=== PATIENT | male | born 1965 | race Caucasian/White ===

== ENCOUNTER 2022-05-31 14:51 | Outpatient (REF) | payer OTHER, SELFPAY ==
--- NOTE | ~2022-05-31 | XR_ITS ---
EXAMINATION: XR FOOT, RIGHT XR FOOT, LEFT CLINICAL INFORMATION: [place]unions COMPARISON: Radiographs bilateral feet 10/12/2015 TECHNIQUE: Each foot is imaged in 3 views. There are total of 6 views. FINDINGS: Right: There is a prominent hallux valgus first MTP of approximately 54 degrees. Mild soft tissue prominence overlying the medial first metatarsal head. There are no erosive changes or destructive process. No fracture. There are hammertoe deformities second through fifth toes. The second MTP joint is not seen in profile, likely projectional. There are degenerative changes interphalangeal joints. No definite erosive change. The bony mineralization is normal. There are no erosive changes. There is moderate posterior and smaller plantar calcaneal spur. The retrocalcaneal recess is preserved. Subtalar joint unremarkable. Long axis talas projected lateral to first metatarsal on AP view and about first metatarsal on lateral view suggesting hindfoot varus. Left: There is prominent hallux valgus first MTP of approximately 46 degrees. Mild soft tissue prominence overlying the medial first metatarsal head. No erosive change or. No fracture. There are hammertoe deformities second through fifth digits with degenerative changes interphalangeal joint. No clearly visible erosive change. There is moderate posterior and borderline plantar calcaneal spur. The retrocalcaneal recess is preserved. The subtalar joint is unremarkable. Long axis talas projected lateral to first metatarsal on AP view and about first metatarsal on lateral view suggesting hindfoot varus. XR/XR foot RT min 3V IMPRESSION: -Prominent bilateral hallux valgus, greater on right. 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 -Bilateral common femoral with degenerative changes interphalangeal joint. -Bilateral posterior and borderline plantar calcaneal spurs.
--- NOTE | ~2022-05-31 | XR_ITS ---
EXAMINATION: XR FOOT, RIGHT XR FOOT, LEFT CLINICAL INFORMATION: Bunions COMPARISON: Radiographs bilateral feet 10/12/2015 TECHNIQUE: Each foot is imaged in 3 views. There are total of 6 views. FINDINGS: Right: There is a prominent hallux valgus first MTP of approximately 54 degrees. Mild soft tissue prominence overlying the medial first metatarsal head. There are no erosive changes or destructive process. No fracture. There are hammertoe deformities second through fifth toes. The second MTP joint is not seen in profile, likely projectional. There are degenerative changes interphalangeal joints. No definite erosive change. The bony mineralization is normal. There are no erosive changes. There is moderate posterior and smaller plantar calcaneal spur. The retrocalcaneal recess is preserved. Subtalar joint unremarkable. Long axis talas projected lateral to first metatarsal on AP view and about first metatarsal on lateral view suggesting hindfoot varus. Left: There is prominent hallux valgus first MTP of approximately 46 degrees. Mild soft tissue prominence overlying the medial first metatarsal head. No erosive change or. No fracture. There are hammertoe deformities second through fifth digits with degenerative changes interphalangeal joint. No clearly visible erosive change. There is moderate posterior and borderline plantar calcaneal spur. The retrocalcaneal recess is preserved. The subtalar joint is unremarkable. Long axis talas projected lateral to first metatarsal on AP view and about first metatarsal on lateral view suggesting hindfoot varus. XR/XR foot LT min 3V IMPRESSION: -Prominent bilateral hallux valgus, greater on right. 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 -Bilateral common femoral with degenerative changes interphalangeal joint. -Bilateral posterior and borderline plantar calcaneal spurs.
== END 2022-05-31 14:52 | disposition home or self-care (01) ==
LOC: HO.XRAY 14:51
PROVIDERS: PCP Internal Medicine; Visit Provider Internal Medicine
DX: M21.612 Bunion of left foot (principal); M21.611 Bunion of right foot
CPT/HCPCS: 73630

== ENCOUNTER 2022-06-01 06:18 | Outpatient (REF) | payer OTHER, SELFPAY ==
[2022-06-01 06:38] LABS: MANUAL DIFF FLAG NO
[2022-06-01 07:40] LABS: Basophils Absolute Auto 0.1 X10*3/uL (0.0-0.2); Eosinophils Absolute Auto 0.3 X10*3/uL (0.0-0.4); Eosinophils Percent Auto 5.3 % (0-4); Hematocrit 43.7 % (42.0-52.0); Hemoglobin 15.1 g/dl (14.0-18.0); Imm Gran Abs Auto 0.02 X10*3/uL (0.00-0.03); Imm Gran Pct Auto 0.3 % (0.0-0.4); Lymphocytes Absolute Auto 2.4 X10*3/uL (1.2-4.9); Lymphocytes Percent Auto 40.1 % (20-40); Mean Corpuscular HGB Conc 34.6 g/dl (31.0-36.0); Mean Corpuscular Hemoglobin 30.4 pg (27.0-33.0); Mean Corpuscular Volume 88.1 fL (80.0-98.0); Mean Platelet Volume 9.8 fL (9.4-12.4); Monocytes Absolute Auto 0.6 X10*3/uL (0.1-1.2); Monocytes Percent Auto 10.2 % (2-11); Neutrophils Absolute Auto 2.6 x10*3/uL (2.0-8.3); Neutrophils Percent Auto 43.1 % (45-73); Platelet Count 234 X10*3/uL (160-400); Red Blood Count 4.96 X10*6/uL (4.60-5.80); Red Cell Distribution Width 12.6 % (11.0-16.0); White Blood Count 6.1 X10*3/uL (4.8-10.8)
[2022-06-01 08:11] LABS: Alanine Aminotransferase 25 U/L (0-40); Albumin Level 4.4 g/dL (3.5-5.0); Alkaline Phosphatase 74 U/L (39-117); Anion Gap 12 (12-20); Aspartate Amino Transferase 24 U/L (5-37); Bilirubin Total 0.4 mg/dL (0.0-1.0); Blood Urea Nitrogen 27 mg/dL (9-16); C Reactive Protein 0.28 mg/dL (< or = 0.50); Calcium 9.4 mg/dL (8.4-10.2); Carbon Dioxide 24 mmol/L (22-29); Chloride 108 mmol/L (96-108); Cholesterol 254 mg/dL; Estimated Glomerular Filt Rate > 60; Glucose Fasting 93 mg/dL (60-99); HDL Cholesterol 52 mg/dL; LDL Cholesterol Calculated 189 mg/dl; Potassium 4.1 mmol/L (3.3-5.1); Sodium 140 mmol/L (135-145); Total Protein 7.3 g/dL (6.5-8.0); Triglycerides 66 mg/dL; Uric Acid 6.7 mg/dL (3.4-7.0)
[2022-06-01 08:34] LABS: Prostate Specific Antigen 0.71 ng/mL (<0.05-4.0)
== END 2022-06-01 06:19 | disposition home or self-care (01) ==
LOC: HO.LAB 06:18
PROVIDERS: PCP Internal Medicine; Visit Provider Internal Medicine
DX: Z00.00 Encounter for general adult medical examination without abnormal findings (principal); Z12.5 Encounter for screening for malignant neoplasm of prostate
CPT/HCPCS: 36415; 80053; 80061; 84153; 84550; 85025; 86140

== ENCOUNTER 2022-10-13 07:21 | Outpatient (REF) | payer OTHER, SELFPAY ==
[2022-10-13 08:21] LABS: Cholesterol 208 mg/dL; HDL Cholesterol 51 mg/dL; LDL Cholesterol Calculated 137 mg/dl; Triglycerides 103 mg/dL
== END 2022-10-13 07:22 | disposition home or self-care (01) ==
LOC: HO.LAB 07:21
PROVIDERS: PCP Internal Medicine; Visit Provider Internal Medicine
DX: E78.00 Pure hypercholesterolemia, unspecified (principal)
CPT/HCPCS: 36415; 80061

== ENCOUNTER 2023-06-18 06:09 | Outpatient (REF) | payer OTHER, SELFPAY ==
[2023-06-18 11:25] LABS: MANUAL DIFF FLAG NO
[2023-06-18 11:56] LABS: Basophils Percent Auto 0.7 % (0-2); Eosinophils Absolute Auto 0.3 X10*3/uL (0.0-0.4); Eosinophils Percent Auto 5.8 % (0-4); Hematocrit 43.1 % (42.0-52.0); Hemoglobin 14.5 g/dl (14.0-18.0); Imm Gran Abs Auto 0.02 X10*3/uL (0.00-0.03); Imm Gran Pct Auto 0.4 % (0.0-0.4); Lymphocytes Percent Auto 36.1 % (20-40); Mean Corpuscular HGB Conc 33.6 g/dl (31.0-36.0); Mean Corpuscular Hemoglobin 30.1 pg (27.0-33.0); Mean Corpuscular Volume 89.4 fL (80.0-98.0); Mean Platelet Volume 10.1 fL (9.4-12.4); Monocytes Absolute Auto 0.5 X10*3/uL (0.1-1.2); Monocytes Percent Auto 9.6 % (2-11); Neutrophils Absolute Auto 2.7 x10*3/uL (2.0-8.3); Neutrophils Percent Auto 47.4 % (45-73); Platelet Count 220 X10*3/uL (160-400); Red Blood Count 4.82 X10*6/uL (4.60-5.80); Red Cell Distribution Width 12.5 % (11.0-16.0); White Blood Count 5.7 X10*3/uL (4.8-10.8)
[2023-06-18 12:25] LABS: Prostate Specific Antigen 0.89 ng/mL (<0.05-4.0)
[2023-06-18 12:36] LABS: Sodium 138 mmol/L (135-145)
[2023-06-18 12:37] LABS: Alanine Aminotransferase 24 U/L (0-40); Albumin Level 4.1 g/dL (3.5-5.0); Alkaline Phosphatase 68 U/L (39-117); Anion Gap 10 (12-20); Aspartate Amino Transferase 27 U/L (5-37); Bilirubin Total 0.5 mg/dL (0.0-1.0); Blood Urea Nitrogen 22 mg/dL (9-16); Calcium 9.4 mg/dL (8.4-10.2); Carbon Dioxide 26 mmol/L (22-29); Chloride 106 mmol/L (96-108); Cholesterol 217 mg/dL; Estimated Glomerular Filt Rate > 60; Glucose Fasting 95 mg/dL (60-99); HDL Cholesterol 48 mg/dL; LDL Cholesterol Calculated 137 mg/dl; Potassium 3.8 mmol/L (3.3-5.1); Total Protein 7.1 g/dL (6.5-8.0); Triglycerides 162 mg/dL
== END 2023-06-18 06:10 | disposition home or self-care (01) ==
LOC: HO.HMGCLDS 06:09
PROVIDERS: PCP Internal Medicine; Visit Provider Internal Medicine
DX: E78.00 Pure hypercholesterolemia, unspecified (principal); R35.1 Nocturia; M19.042 Primary osteoarthritis, left hand; M19.041 Primary osteoarthritis, right hand; Z12.5 Encounter for screening for malignant neoplasm of prostate
CPT/HCPCS: 36415; 80053; 80061; 84153; 85025

== ENCOUNTER 2025-08-19 15:32 | Outpatient (AMB) | payer OTHER, SELFPAY ==
--- NOTE | 2025-08-19 15:27 | MHC.PC.OV ---
Vital Signs 08/19/25 15:39 Height 5 ft 11 in Weight 215 lb BMI 30.0 BP 164/80 H Blood Pressure Location Rt brachial Position Sitting Respiration 17 Pulse 77 Pulse Source Pulse Oximeter Temp 97.4 F Temp Source Temporal Artery Scan Pulse Oximetry (%) 96 Oxygen Delivery Method Room Air Intake Visit Reasons: Phyiscal - Croke pt. - see comments Test Deskman Required: No Accompanied by: Self / Same As Patient Allergies No Known Allergies Allergy (Verified 08/19/25 15:27) Tobacco use date assessed: 08/19/25 Dental Screening Dental Screen Date: 08/19/25 Did you have a dental visit in the last 12 months?: Yes Did you have a dental problem in the last 6 months where you did not have access to dental care?: No Was dental information given to patient?: Patient has dentist HPI HPI Comments History of Present Illness Details The patient is a 59-year-old male presenting with concerns of elevated blood pressure and leg swelling. He noted that his blood pressure was recorded at 164/80, which is considered high. He denies any prior knowledge of hypertension, as he has not been routinely taking medications. The patient expresses concern that the blood pressure reading may be influenced by situational stress as it improved slightly during the office visit to 140/80. He has not experienced any notable symptoms such as shortness of breath or chest discomfort associated with the elevated blood pressure. 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 He describes the swelling occurring after a day of work, after wearing socks and work boots. The swelling subsides somewhat when he elevates his legs at home. The patient also mentions a history of elevated cholesterol in previous lab work, although he is not currently on medication for this condition. Additionally, snoring has been reported by his , although he personally is not troubled by sleep disturbances or sensations of choking during the night. He denies symptoms of orthopnea or daytime somnolence. Medical History: - Previous history of elevated cholesterol Surgical History: - No history of surgical procedures. Medications: - None currently prescribed. Family History: - No family history of cancer, diabetes, or hypertension. 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 - Substance Use: Former smoker for 10+ years, quit 23-30 years ago. Occasionally consumes alcohol. Denies use of marijuana, cocaine, or heroin. - Housing: Stable housing. - Activity: Experiences leg swelling after prolonged standing at work. [facility] Medical History (Updated 08/19/25 @ 15:57 by Saim Doss MD) Swelling of lower extremity Hyperlipidemia Hypertension Social History Housing: House Patient Tobacco Use Status: Former Tobacco user Years Smoked: 10 years-quit 20 years ago e-Cigarette/Vaping Use: Never Used service: Yes Current occupational status: employed Current occupation: [employer] incorporated Questionnaire PHQ-9 Over the last 2 weeks, how often have you been bothered by any of the following problems? 1. Little interest or pleasure in doing things: not at all 2. Feeling down, depressed, or hopeless: not at all 3. Trouble falling or staying asleep, or sleeping too much: not at all 4. Feeling tired or having little energy: not at all 5. Poor appetite or overeating: not at all 6. Feeling bad about yourself - or that you are a failure or have let yourself or your family down: not at all 7. Trouble concentrating on things, such as reading the newspaper or watching television: not at all 8. Moving or speaking so slowly that other people could have noticed. Or the opposite - being so fidgety or restless that you have been moving around a lot more than usual: not at all 9. Thoughts that you would be better off or of hurting yourself in some way: not at all Total score: 0 Depression Screening Interpretation: Negative Depression Screening Done: Yes 15181 - PHQ-9 Billing: Yes Source: Developed by Drs. Virgilio Stanley, Meron Coe, Guanako Avila and colleagues, with an educational lory from [employer]. Thrive Questionnaire Date Thrive assessed: 08/19/25 I am a: Patient What is your living situation today?: I have a steady place to live Within the past 12 months, did the food you bought not last and you didn't have the money to get more?: Never true Within the past 12 months, did you worry whether your food would run out before you got money to buy more?: Never true Do you have trouble paying for medicines?: No Do you have trouble getting transportation to medical appointments?: No Do you have trouble paying your heating and electricity bill?: No Do you have trouble taking care of your child, family member or friend?: No Do you have trouble with day-to-day activities such as bathing, preparing meals, shopping, managing finances, etc.?: No Are you currently unemployed and looking for a job?: No Are you interested in more education?: No THRIVE Score: 0 AUDIT C Alcohol Use Questionnaire (AUDIT-C) 1. How often do you have a drink containing alcohol?: Monthly or less 2. How many drinks containing alcohol do you have on a typical day when you are drinking?: 1 or 2 Total Score: 1 Score Reviewed/Action Taken: Yes HUMPHREY-7 AMB Questionnaire HUMPHREY-7 Date HUMPHREY - 7 assessed: 08/19/25 Feeling nervous, anxious, or on edge: 0 = Not at all Not being able to stop or control worryin = Not at all Worrying too much about different things: 0 = Not at all Trouble relaxin = Not at all Being so restless that it is hard to sit still: 0 = Not at all Becoming easily annoyed or irritable: 0 = Not at all Feeling afraid as if something awful might happen: 0 = Not at all Total HUMPHREY-7 score (0-4 normal; 5-9 mild; 10-14 moderate; 15-21 severe): 0 Source: Developed by Drs. Virgilio Stanley, Meron Coe, Guanako Avila and colleagues, with an educational lory from [employer]. HUMPHREY-7 Assessment Billing HUMPHREY-7 Assessment Tool: HUMPHREY-7 Assessment 91451 Review of Systems Const Details: - Cardiovascular: Reports leg swelling; Denies shortness of breath. - Respiratory: Denies shortness of breath, but reports snoring. - Sleep: Denies difficulty sleeping or waking up gasping. - Psychiatric: Denies feelings of depression; occasionally feels tired. All systems reviewed & are unremarkable except as reviewed in HPI and above Physical exam (Primary Care) Vital Signs: Last Vital Signs Temp 97.4 F 08/19/25 15:39 Pulse 77 08/19/25 15:39 Resp 17 08/19/25 15:39 BP 164/80 H 08/19/25 15:39 Pulse Ox 96 08/19/25 15:39 Oxygen Delivery Method Room Air 08/19/25 15:39 BMI result Body Mass Index 30.0 Tobacco/Smoking Status: Tobacco use Status Tobacco use date assessed 08/19/25 08/19/25 15:28 Patient Tobacco Use Status Former Tobacco user 08/19/25 15:42 e-Cigarette/Vaping Use Never Used 08/19/25 15:42 Depression Screening Interpretation: Negative Const Other: General: Alert and oriented, Well nourished, No acute distress. Eye: Pupils are equal, round and reactive to light, Intact accommodation, Extraocular movements are intact, Normal conjunctiva, Vision unchanged. HENT: Normocephalic, Atraumatic, Tympanic membranes are clear, Normal hearing, Oral mucosa is moist, No pharyngeal erythema, Ear canals patent. Respiratory: Lungs CTA bilaterally, No wheeze, Respirations are non-labored. Cardiovascular: Regular rate, Regular rhythm, S1 auscultated, S2 auscultated, No murmur, Good pulses equal in all extremities, Normal peripheral perfusion, Edema noted in legs. Gastrointestinal: Soft, Non-tender, Non-distended, Normal bowel sounds, No organomegaly. Musculoskeletal: Normal range of motion, Normal strength, No tenderness, No swelling, No deformity, Normal gait. Integumentary: Warm, Dry, [place], Intact. Neurologic: Alert, Oriented, Normal sensory, Normal motor function, No focal defects, Cranial Nerves II-XII are grossly intact, Normal deep tendon reflexes. Psychiatric: Cooperative, Appropriate mood & affect, Normal judgment. Mood is good, no depression noted. Coding Level of Care Code New Pt Level 3 (46804) New Pt Prev Care 40-64y(12409) Diagnoses Hypertension, unspecified type I10 Hypertension type: unspecified Hyperlipidemia, unspecified hyperlipidemia type E78.5 Hyperlipidemia type: unspecified Swelling of lower extremity M79.89 Additional Codes PHQ-9 - 72642 - PHQ-9 Billing: Yes ([id number]) HUMPHREY-7 Assessment Billing - HUMPHREY-7 Assessment Tool: HUMPHREY-7 Assessment 08555 ([id number]) Assessment & Plan Assessment & Plan (1) Hypertension: Comment: - Encourage patient to monitor blood pressure at home with a cuff in the morning and maintain a log for the next six weeks. - Recommend lifestyle modifications: reduce sodium intake, increase physical activity, and consider dietary changes to aid in potential weight loss. - Discuss follow-up in six weeks to reassess blood pressure and potentially begin pharmacologic treatment if readings remain elevated. Code(s): I10 - Essential (primary) hypertension Category: Medical Qualifiers: Hypertension type: unspecified Qualified Code(s): I10 - Essential (primary) hypertension (2) Hyperlipidemia: Comment: - Order lipid panel to assess current cholesterol levels and determine the need for treatment. - Discuss diet modifications to assist in lowering cholesterol, emphasizing low-fat and heart-healthy options. - Discuss the potential need for statin therapy if cholesterol remains high upon reevaluation in six weeks. Code(s): E78.5 - Hyperlipidemia, unspecified Category: Medical Qualifiers: Hyperlipidemia type: unspecified Qualified Code(s): E78.5 - Hyperlipidemia, unspecified (3) Swelling of lower extremity: Comment: - Recommend use of compression stockings during work hours to alleviate leg swelling. - Advise routine elevation of legs when possible to reduce edema. - Ordered lab tests to rule out secondary causes of edema. Code(s): M79.89 - Other specified soft tissue disorders Category: Medical Plan: Health Maintenance: - Encouraged colon cancer screening due to the patient's age, cologuard ordered Patient was informed and verbally consented to the use of an ambient scribe for clinic note documentation during this visit. Plan I discussed with the patient that his recorded high blood pressure might indicate essential hypertension, which requires monitoring and lifestyle intervention to prevent complications. The possibility of starting treatment will depend on home monitoring results over the next six weeks. I emphasized the importance of dietary modifications and potential cholesterol-lowering medication based on future test results. I reviewed potential causes of his leg swelling and suggested compression stockings along with symptomatic management. We considered but deferred immediate intervention for snoring unless further symptoms suggestive of sleep apnea emerge. I discussed the importance of colon cancer screening and respected the patient's preference for stool-based testing after providing information on procedures and risks. We agreed on a six-week follow-up to assess all current management strategies and interventions. Orders: Orders Complete Blood Count Auto Diff Today I10 - Essential (primary) hypertension, Z76.89 - Persons encountering health services in other specified circumstances Comprehensive Met. Panel Today I10 - Essential (primary) hypertension, Z76.89 - Persons encountering health services in other specified circumstances Hepatitis A,B,C Profile Today I10 - Essential (primary) hypertension, Z76.89 - Persons encountering health services in other specified circumstances Syphilis Screen Today I10 - Essential (primary) hypertension, Z76.89 - Persons encountering health services in other specified circumstances Hemoglobin A1c Today I10 - Essential (primary) hypertension, Z76.89 - Persons encountering health services in other specified circumstances HIV Ab/Ag Today I10 - Essential (primary) hypertension, Z76.89 - Persons encountering health services in other specified circumstances Lipid Panel Today I10 - Essential (primary) hypertension, Z76.89 - Persons encountering health services in other specified circumstances TSH reflex Free T4 Today I10 - Essential (primary) hypertension, Z76.89 - Persons encountering health services in other specified circumstances Vitamin D 25-OH Total Today I10 - Essential (primary) hypertension, Z76.89 - Persons encountering health services in other specified circumstances Referrals Cologuard Test Z12.11 - Encounter for screening for malignant neoplasm of colon Medications: New comp.stocking,thigh,long,large As directed 2 ea 0RF Patient Instructions: - Monitor blood pressure every morning at home and record the readings. - Purchase and use compression stockings while at work. - Maintain a low-sodium diet and aim for regular physical activity. - Schedule and complete blood tests as ordered. - Undergo fecal immunochemical testing for colon cancer screening. - Return in six weeks with blood pressure readings and to discuss any changes in symptoms. - Elevate legs whenever sitting to help with swelling. - Consider dietary changes to aid in lowering cholesterol.
[2025-08-19 15:39] VITALS: BP 164/80; PULSE 77; RESP 17; TEMP 36.3; O2SAT 96
== END 2025-08-19 15:58 | disposition home or self-care (01) ==
LOC: HO.HMCHD 15:33
PROVIDERS: PCP Student in an Organized Health Care Education/Training Program; Visit Provider Student in an Organized Health Care Education/Training Program
DX: Z00.00 Encounter for general adult medical examination without abnormal findings (principal); I10 Essential (primary) hypertension; E78.5 Hyperlipidemia, unspecified; M79.89 Other specified soft tissue disorders

== ENCOUNTER → 2025-08-19 15:32 | Outpatient (BNVA) | payer OTHER, SELFPAY | PROVIDERS: PCP Internal Medicine; Visit Provider Student in an Organized Health Care Education/Training Program | DX: I10 Essential (primary) hypertension (principal); E78.5 Hyperlipidemia, unspecified; M79.89 Other specified soft tissue disorders; Z13.31 Encounter for screening for depression; Z13.39 Encounter for screening examination for other mental health and behavioral disorders | CPT/HCPCS: 96127 ==

== ENCOUNTER 2025-09-22 06:04 | Outpatient (REF) | payer OTHER, SELFPAY ==
--- OUTSIDE RECORDS SUMMARY | 2025-09-22 06:08 | XMS_ITS | Patient Health Record ---
[facility] [place] Address [address] [place] [address] Care Team Providers Care [employer] Name Role Phone Wally Marquez MD Primary Care Provider Marlon Doran Unavailable [phone] Allergies No Known Allergies Reason For Referral No Information Medications Medication SIG (Take, Route, Frequency, Duration) Notes Start Date End Date Status Work Note-Appointment . . . Pt had a anthony eduled appointment today; Duration: . Not-Taking Work Note-Appointment . . . Pt had a anthony eduled appointment today; Duration: . 12/07/2015 Not-Taking Voltaren 1 % as directed Externally Active Motrin Not-Taking Work Note-Appointment . . . Pt had a anthony eduled appointment today; Duration: . Not-Taking Immunizations Vaccine Route Administration Date Status Comme nts COVID-19 Pfizer BioNTech Vaccine Unknown 10/14/2021 Administered 1st 09/18/21 Social History Tobacco Use: Social History Observation Description Date Details (start date - stop date) Never Smoker NA - NA Tobacco Use/Smoking Question Answer Notes Are you a: nonsmoker Additional Findings: Tobacco Non-User Current no n-smoker Alcohol Screen Question Answer Notes Did you have a drink contain ing alcohol in the past year? Yes How often did you have a dri nk containing alcohol in the past year? Monthly or less (1 point) Points 1 Interpretation Negative Tobacco use other than smoking: Question Answer Notes Are you an other tobacco user? No Problems Problem Type SNOMED Code ICD Code Onset Dates Problem Status W/U Status Risk Notes Problem Acquired hallux valgus (22856306) Hallux valgus (acquired), left foot (M20.12) Active confirmed Problem Localized, primary osteoarthritis of the ankle and/or foot (455099495) Primary osteoarthrit is, right ankle and foot (M19.071) Active confirmed Problem Localized, primary osteoarthritis of the ankle and/or foot (410719082) Primary osteoarthrit is, left ankle and foot (M19.072) Active confirmed Problem Acquired hallux valgus (78853777) Hallux valgus (acquired), right foot (M20.11) Active confirmed Problem Acquired hammer toe of right foot (8766550136035500) Other hammer toe(s) (acquired), right foot (M20.41) Active confirmed Problem Acquired hammer toe of left foot (5799645275475476) Other hammer toe(s) (acquired), left foot (M20.42) Active confirmed Plan Of Treatment No Information Insurance Providers Payer Name Payer Address Payer Phone Subscriber Number Group Number Insured Name Patient Relationship to Insured Coverage Start Date Coverage End Date [facility] [address] [place] [address] [id number] Vega Foster Self - patient is the insured Medical (General) History Medical History History ICD Code back pain kidney stones sciatica covid-19 Cholesterol Surgical History Surgery Date(Month/Year) llithothripsy 1998 deviated septum and nasal polyps 2205
[2025-09-22 06:18] LABS: MANUAL DIFF FLAG NO
[2025-09-22 07:47] LABS: Hematocrit 41.2 % (42.0-52.0); Hemoglobin 14.0 g/dl (14.0-18.0); Imm Gran Abs Auto 0.01 X10*3/uL (0.00-0.03); Imm Gran Pct Auto 0.2 % (0.0-0.4); Lymphocytes Absolute Auto 1.9 X10*3/uL (1.2-4.9); Mean Corpuscular HGB Conc 34.0 g/dl (31.0-36.0); Mean Corpuscular Hemoglobin 29.7 pg (27.0-33.0); Mean Corpuscular Volume 87.3 fL (80.0-98.0); NRBC Abs Auto 0.000 X10*3/uL (0.0-0.012); NRBC Pct Auto 0.0 /100WBC (0.0-0.2); Platelet Count 230 X10*3/uL (160-400); Red Blood Count 4.72 X10*6/uL (4.60-5.80); White Blood Count 5.6 X10*3/uL (4.8-10.8)
[2025-09-22 08:08] LABS: Hemoglobin A1C 120.9034 umol/L; Total Hemoglobin (HGBA1C) 3592.4778 umol/L
[2025-09-22 08:17] LABS: Alanine Aminotransferase 56 U/L (0-40); Albumin Level 4.3 g/dL (3.5-5.0); Alkaline Phosphatase 86 U/L (39-117); Anion Gap 10 (12-20); Aspartate Amino Transferase 35 U/L (5-37); Blood Urea Nitrogen 16 mg/dL (9-16); Calcium 9.1 mg/dL (8.4-10.2); Carbon Dioxide 25 mmol/L (22-29); Chloride 108 mmol/L (96-108); Cholesterol 195 mg/dL (<200); Estimated Glomerular Filt Rate > 60; HDL Cholesterol 45 mg/dL (>40); Potassium 4.1 mmol/L (3.3-5.1); Sodium 139 mmol/L (135-145); Total Protein 7.2 g/dL (6.5-8.0); Triglycerides 83 mg/dL (<150)
[2025-09-22 08:36] LABS: Syphilis Screen Nonreactive (Nonreactive)
[2025-09-22 08:37] LABS: HBS Num1 0.00 mIU/mL (0-7.99); HBc Num1 0.46 S/CO (0.00-0.79); HBsAGNum1 0.32 S/CO (0.00-0.99); HIV Num 1 0.04 S/CO (0.00-0.99); Hepatitis A Antibody IgM 0.14 Index (0-0.79); Hepatitis B Surface Antigen Negative (Negative); ~HepC Num1 0.06 S/CO (0.00-0.79); ~Hepatitis A Antibody IgM Nonreactive (Nonreactive); ~Hepatitis B Surface Antibody NONREACTIVE (Nonreactive); ~Hepatitis C Antibody Nonreactive (Nonreactive)
== END 2025-09-22 06:05 | disposition home or self-care (01) ==
LOC: HO.LAB 06:04
PROVIDERS: PCP Student in an Organized Health Care Education/Training Program; Visit Provider Student in an Organized Health Care Education/Training Program
DX: Z00.00 Encounter for general adult medical examination without abnormal findings (principal)
CPT/HCPCS: 36415; 80053; 80061; 82306; 83036; 84443; 85025; 86704; 86706; 86709; 86780; 86803; 87340; 87389

== ENCOUNTER 2025-09-29 16:07 | Outpatient (AMB) | payer OTHER, SELFPAY ==
[2025-09-29 16:12] VITALS: BP 138/83; PULSE 68; TEMP 36.6; O2SAT 98; BMI 28.8
--- NOTE | 2025-09-29 16:12 | A.OFFPC_ITS ---
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 The patient has been monitoring his blood pressure at home, with readings consistently in the 110-120 mmHg systolic and 70-80 mmHg diastolic range. This is in contrast to a previous in-office reading of 160 mmHg, leading to a diagnosis of white coat hypertension. Recent blood work revealed high cholesterol, with a bad cholesterol (LDL) level of 134 mg/dL, previously 137 mg/dL, which places him at an increased risk for cardiovascular events. The patient also reports age-related vision changes, now requiring reading glasses. Medical History: - White coat hypertension - Hypercholesterolemia Diagnostic Results: - Labs: LDL cholesterol was 134 mg/dL. - Tests and Diagnostics: In-office EKG w as normal. [facility] Medical History Swelling of lower extremity Hyperlipidemia Hypertension Family History (Updated 09/29/25 @ 16:20 by Demetrice Hanna MA) Mother No problems noted. Father No problems noted. Social History Housing: House Patient Tobacco Use Status: Former Tobacco user Years Smoked: 10 years-quit 20 years ago e-Cigarette/Vaping Use: Former Use service: Yes Current occupational status: employed Current occupation: [employer] Cognitive needs: No Hearing needs: No Vision needs: Yes (Reading glasses) Questionnaire PHQ-9 Over the last 2 weeks, how often have you been bothered by any of the following problems? 1. Little interest or pleasure in doing things: not at all 2. Feeling down, depressed, or hopeless: not at all 3. Trouble falling or staying asleep, or sleeping too much: not at all 4. Feeling tired or having little energy: not at all 5. Poor appetite or overeating: not at all 6. Feeling bad about yourself - or that you are a failure or have let yourself or your family down: not at all 7. Trouble concentrating on things, such as reading the newspaper or watching television: not at all 8. Moving or speaking so slowly that other people could have noticed. Or the opposite - being so fidgety or restless that you have been moving around a lot more than usual: not at all 9. Thoughts that you would be better off or of hurting yourself in some way: not at all Total score: 0 Source: Developed by Drs. Virgilio Stanley, Meron Coe, Guanako Avila and colleagues, with an educational lory from [employer]. Thrive Questionnaire Date Thrive assessed: 09/29/25 I am a: Patient Within the past 12 months, did the food you bought not last and you didn't have the money to get more?: Never true Within the past 12 months, did you worry whether your food would run out before you got money to buy more?: Never true Do you have trouble paying for medicines?: No Do you have trouble getting transportation to medical appointments?: No Do you have trouble paying your heating and electricity bill?: No Do you have trouble taking care of your child, family member or friend?: No Do you have trouble with day-to-day activities such as bathing, preparing meals, shopping, managing finances, etc.?: No Are you currently unemployed and looking for a job?: No Are you interested in more education?: No THRIVE Score: 0 AUDIT C Alcohol Use Questionnaire (AUDIT-C) 1. How often do you have a drink containing alcohol?: Monthly or less 2. How many drinks containing alcohol do you have on a typical day when you are drinking?: 1 or 2 3. How often do you have six or more drinks on one occasion?: Less than monthly Total Score: 2 HUMPHREY-7 AMB Questionnaire HUMPHREY-7 Date HUMPHREY - 7 assessed: 09/29/25 Feeling nervous, anxious, or on edge: 0 = Not at all Not being able to stop or control worryin = Not at all Worrying too much about different things: 0 = Not at all Trouble relaxin = Not at all Being so restless that it is hard to sit still: 0 = Not at all Becoming easily annoyed or irritable: 0 = Not at all Feeling afraid as if something awful might happen: 0 = Not at all Total HUMPHREY-7 score (0-4 normal; 5-9 mild; 10-14 moderate; 15-21 severe): 0 Source: Developed by Drs. Virgilio Stanley, Meron Coe, Guanako Avila and colleagues, with an educational lory from [employer]. Review of Systems Narrative - General: Reports feeling fine. - Cardiovascular: Denies chest pain. - Gastrointestinal: Denies nausea or vomiting and reports normal bowel function. - Genitourinary: Reports normal urination. - Respiratory: Denies shortness of breath. - Neurological: Denies headaches. - Eyes: Reports changes in vision requiring reading glasses. All systems reviewed & are unremarkable except as reviewed in HPI and above Physical exam (Primary Care) Vital Signs: Last Vital Signs Temp 98 F 09/29/25 16:12 Pulse 68 09/29/25 16:12 BP 138/83 09/29/25 16:12 Pulse Ox 98 09/29/25 16:12 Oxygen Delivery Method Room Air 09/29/25 16:12 BMI result Body Mass Index 28.8 Tobacco/Smoking Status: Tobacco use Status Tobacco use date assessed 09/29/25 09/29/25 16:20 Patient Tobacco Use Status Former Tobacco user 09/29/25 16:20 e-Cigarette/Vaping Use Former Use 09/29/25 16:20 PHQ-9: PHQ-9 Score PHQ-9: Total score 0 09/29/25 16:20 Thrive Assessment: Date of Thrive Assessment Date Thrive assessed 09/29/25 09/29/25 16:20 Narrative General: Alert and oriented, Well nourished, No acute distress. Eye: Pupils are equal, round and reactive to light, Intact accommodation, Extr aocular movements are intact, Normal conjunctiva, Vision unchanged, but patient uses reading glasses due to presbyopia. HENT: Normocephalic, Atraumatic, Tympanic membranes are clear, Normal hearing, O ral mucosa is moist, No pharyngeal erythema, Ear canals patent. Respiratory: Lungs CTA bilaterally, No wheeze, Respirations are non-labored. Cardiovascular: Regular rate, Regular rhythm, S1 auscultated, S2 auscultated, No murmur, Good pulses equal in all extremities, Normal peripheral perfusion, No edema. Gastrointestinal: Soft, Non-tender, Non-distended, Normal bowel sounds, No organomegaly. Musculoskeletal: Normal range of motion, Normal strength, No tenderness, No swelling, No deformity, Normal gait. Integumentary: Warm, Dry, Petty, Intact. Neurologic: Alert, Oriented, Normal sensory, Normal motor function, No focal defects, Cranial Nerves II-XII are grossly intact, Normal deep tendon reflexes. Psychiatric: Cooperative, Appropriate mood & affect, Normal judgment. Coding Level of Care Code Est Pt Level 4 (04643) Complex EM visit Add On G2211 Diagnoses Hypertension, unspecified type I10 Hypertension type: unspecified Hyperlipidemia, unspecified hyperlipidemia type E78.5 Hyperlipidemia type: unspecified Assessment & Plan Assessment & Plan (1) Hypertension: Comment: - The patient's home blood pressure readings are well-controlled, ranging from 110-120 mmHg systolic and 70-80 mmHg diastolic. (Whitecoat hypertension) - No antihypertensive medication is indicated at this time. - The plan is to continue home monitoring once or twice a week. Code(s): I10 - Essential (primary) hypertension Category: Medical Qualifiers: Hypertension type: unspecified Qualified Code(s): I10 - Essential (primary) hypertension (2) Hyperlipidemia: Comment: - The patient's LDL cholesterol of 134 mg/dL is elevated, placing him at an increased risk of cardiovascular events. - The treatment goal is to lower LDL to under 70 or 80 mg/dL. - A prescription for atorvastatin to be taken once daily at night will be sent. - The lipid panel will be rechecked in a few months. Code(s): E78.5 - Hyperlipidemia, unspecified Category: Medical Qualifiers: Hyperlipidemia type: unspecified Qualified Code(s): E78.5 - Hyperlipidemia, unspecified Plan: Health Maintenance: - The patient's cardiovascular risk due to hypercholesterolemia was discussed. - Initiating statin therapy (atorvastatin) for primary prevention of cardiovascular events. - Advised to continue home blood pressure monitoring once or twice a week. - Follow-up scheduled in 6 months for an annual physical examination. Patient was informed and verbally consented to the use of an ambient scribe for clinic note documentation during this visit. Plan I reviewed the patient's home blood pressure log, noting that his readings are well-controlled in the 110-120s/70-80s range. I explained that because his pressures are normal at home but were high in the clinic previously, this is consistent with white coat hypertension, and blood pressure medication is not n ecessary at this time. We discussed his recent blood work, which showed his bad cholesterol (LDL) was 134. I explained that this level increases his risk for cardiovascular events and recommended starting atorvastatin with a goal of lowering his LDL to under 80. I addressed the patient's concern about the AFib alerts from his home monitor, reassuring him that true AFib is a persistent condition and that his heart rate is well-controlled, making this diagnosis unlikely. The patient agreed to the plan, and we will follow up in six months for his annual physical. Medications: New atorvastatin (Lipitor) 20 mg PO BEDTIME 90 tabs 3RF 90 days Patient Instructions: - Start taking the atorvastatin pill once every night for your high cholesterol. - Continue to check your blood pressure at home once or twice a week, for example, on a weekend morning. - Do not worry about the atrial fibrillation (AFib) reading from your home machine; your heart is fine. - Please schedule a follow-up appointment in six months. This will be your yearly physical exam.
== END 2025-09-29 16:33 | disposition home or self-care (01) ==
LOC: HO.HMCHD 16:07
PROVIDERS: PCP Student in an Organized Health Care Education/Training Program; Visit Provider Student in an Organized Health Care Education/Training Program
DX: I10 Essential (primary) hypertension (principal); E78.5 Hyperlipidemia, unspecified